=== PATIENT | female | born 1955 | race Caucasian/White ===

== ENCOUNTER 2023-05-05 13:27 | Outpatient (CLI) | payer MEDICARE, OTHER, SELFPAY ==
--- NOTE | 2023-05-05 | CA_ITS ---
APPROVED REPORT EXAM: Comprehensive 2D, Doppler, and color-flow Echocardiogram Patient Transport Officer: Mercedez Gamez RT(R) Ht: 5 ft 5 in Wt: 150lbs BSA: 1.75 BP: 124/76 mmHg Indications: SOB, CP, ex smoker, family history of HD 2D Dimensions LVEF (Corea's) 69.90 % F: 54 - 74 LV Volume 61.70 mL F: 46 - 106 LV Volume Index 35.3 mL/m2 F: 29 - 61 EF AP4 69.20 % EF AP2 62.9 % EF BP 69.9 % GL Strain -16.7 % M-Mode Dimensions RVDd 2.57 cm (0.9-2.6) LA Diam 2.15 cm (1.9-4.0) LVDd 4.29 cm (3.5-5.7) LVDs 3.36 cm (3.5-5.7) IVSd 0.88 cm (0.6-1.1) PWd 0.71 cm (0.6-1.1) EF (Teich) 44.20% FS 21.70% EDV (Teich) 82.60 mL ESV (Teich) 46.10 mL LV Diastology E Decel Time 213 (160-240 msec) E/A Ratio 1.1 Mitral Valve MV E Max Tj. 74.0 (40-130 cm/s) MV A Velocity 70.0 (40-130 cm/s) E/A Ratio 1.05 MV PHT 62.0 ms Left Ventricle The left ventricle is normal size. The left ventricular systolic function is normal. The left ventricular ejection fraction is within the normal range. There is normal left ventricular wall thickness. There is normal LV segmental wall motion. The left ventricular diastolic function is normal. LVEF is 55%. Right Ventricle The right ventricle is not very well visualized, but grossly appears mildly dilated with normal systolic function. Atria The left atrium size is normal. The right atrium size is normal. There is no Doppler evidence of interatrial shunt. Aortic Valve The aortic valve opens well. There is no aortic valvular stenosis. No aortic regurgitation is present. Mitral Valve The mitral valve is normal in structure. No evidence of mitral valve stenosis. There is no mitral valve regurgitation noted. Tricuspid Valve The tricuspid valve leaflets are thin and pliable. Trace tricuspid regurgitation. There is insufficient TR jet to estimate RVSP. Pulmonic Valve The pulmonary valve is normal in structure. Trace pulmonic regurgitation. Great Vessels The aortic root is normal in size. The ascending aorta is normal in size. IVC is normal in size and collapses >50% with inspiration. Pericardium There is no pericardial effusion. Other Information Study Quality: Technically Difficult Conclusion Technically difficult study due to poor accoustic windows. Normal biventricular systolic function. Mild RV dilation. No significant valvular stenosis or regurgitation. Electronically signed by : Amanda Clark MD 05/08/2023 19:37:09
[2023-05-05 15:30] VITALS: PULSE 64; PULSE 68
[2023-05-05] MEDS: ALBUTEROL 0.083% 2.5 MG/3 ML NEB IH (15:30)
== END 2023-05-05 23:59 ==
PROVIDERS: PCP Internal Medicine Adolescent Medicine; Visit Provider Internal Medicine Adolescent Medicine
DX: R06.09 Other forms of dyspnea (principal); R60.0 Localized edema; Z87.891 Personal history of nicotine dependence
CPT/HCPCS: 93306; 94060; 94640; 94726; 94729

== ENCOUNTER 2023-05-13 15:16 | Outpatient (CLI) | payer MEDICARE, OTHER, SELFPAY ==
--- NOTE | 2023-05-13 15:19 | CT_ITS ---
FINAL REPORT CLINICAL HISTORY: H/O TOBACCO USE, smoked for 50 years, quit 4 year ago, 1ppd FINDINGS: CTDI vol (mGy): 2.90 DLP: 106.[address] images of the chest were obtained using the low-dose protocol for screening.There are moderate left coronary artery calcifications. There is no evidence of mediastinal or hilar mass or adenopathy. No axillary mass or adenopathy is identified. On the lung window images, there is moderate emphysema and moderate scarring at the lung apices. There is a small calcified granuloma in the left upper lobe. Multiple pulmonary nodules are seen. There is a nodule in the lateral right lower lobe measuring 3 mm on image 42, the lateral left lung base measuring 5 mm on image 66 and a nodule measuring 6 mm on image 65. IMPRESSION: Lung nodules as above. Lung RADS category 3. Recommend 6 month followup low-dose CT for further evaluation. Reviewed, Interpreted and Dictated by Ben Burnette III, MD Transcribed by Yvonne Vogel Authenticated and . [facility]
== END 2023-05-13 23:59 ==
LOC: RAD 15:17
PROVIDERS: PCP Internal Medicine Adolescent Medicine; Visit Provider Internal Medicine Adolescent Medicine
DX: Z87.891 Personal history of nicotine dependence (principal)
CPT/HCPCS: 71271

== ENCOUNTER 2023-06-14 09:29 | Outpatient (CLI) | payer MEDICARE, OTHER, SELFPAY ==
--- NOTE | 2023-06-14 09:34 | XR_ITS ---
FINAL REPORT TECHNIQUE: Bone mineral density was calculated of the lumbar spine and hip. CLINICAL HISTORY: POST MENOPAUSAL COMPARISON: None FINDINGS: Using L1-4, the bone mineral density of the spine is 0.79 g/cm2, corresponding to T-score of -2.3. Using the left hip, the bone mineral density of the femoral neck is 0.645 g/cm2, corresponding to a T-score of -1.8. Using the right hip, the bone mineral density of the femoral neck is 0.57 g/cm?, corresponding to a T-score of -2.5. NOTE: T-score: Standard deviation compared with peak bone mass of young adult mean. *Following the recommendations of the International Society of Bone densitometry, classification of hip BMD is based on the lower of two T-scores; total hip or femoral neck. IMPRESSION: Diminished bone mineral density of the lumbar spine and left hip consistent with low bone density. Diminished bone mineral density of the right hip, consistent with osteoporosis. Reviewed, Interpreted and Dictated by Ben Burnette III, MD Transcribed by Leyda Shepherd Authenticated and . [facility]
--- NOTE | 2023-06-14 09:34 | MM_ITS ---
PROCEDURE INFORMATION: Exam: MG Bilateral Screening 3D Mammography Exam date and time: 06/14/2023 9:34 AM Age: 68 years old Clinical indication: Screening. No family history of breast cancer. TECHNIQUE: Imaging protocol: Bilateral Screening tomosynthesis and 2D mammography including computer-aided detection (CAD) when performed. COMPARISON: No relevant prior studies available.If prior mammograms are provided, I am happy to add an addendum. FINDINGS: MAMMOGRAPHY: Breast composition: The breasts are heterogeneously dense, which may obscure small masses. Mass: No suspicious mass. Architectural distortion: None. Calcifications: No suspicious calcifications. Asymmetric density: None. Skin thickening: None. Axillary adenopathy: None. IMPRESSION: No mammographic evidence of malignancy. Annual screening is recommended unless otherwise clinically indicated. ASSESSMENT: BI-RADS Category 1: Negative
== END 2023-06-14 23:59 ==
LOC: RAD 09:29
PROVIDERS: PCP Internal Medicine Adolescent Medicine; Visit Provider Internal Medicine Adolescent Medicine
DX: Z78.0 Asymptomatic menopausal state (principal); Z12.31 Encounter for screening mammogram for malignant neoplasm of breast
CPT/HCPCS: 77063; 77067; 77080